=== PATIENT | male | born 1945 | race Caucasian/White ===

== ENCOUNTER 2022-09-29 07:14 | Day surgery (SDC) | payer OTHER, BC ==
[2022-09-23 14:13] VITALS: BMI 30.5
[2022-09-29] MEDS ORDERED: CIPROFLOXACIN 0.3% EYE DROPS 5 ML BOTTLE ONE (07:20)
[2022-09-29] MEDS ORDERED: TROPICAMIDE 1% OPHTH SOLN 15 ML BOTTLE ONE (07:20)
[2022-09-29] MEDS ORDERED: PHENYLEPHRINE 2.5% OPTHALMIC DROP 2ML BOTTLE ONE (07:20)
[2022-09-29] MEDS ORDERED: CYCLOPENTOLATE 2% OPHTH SOLN 2 ML BOTTLE ONE (07:20)
[2022-09-29] MEDS ORDERED: NEO/POLYMYX B SULF/DEXAMETH OPHTHALMIC 5ML BOTTLE ONE (07:31)
[2022-09-29] MEDS ORDERED: LIDOCAINE 1% P/F 10 MG/ML VIAL ONE (07:31)
[2022-09-29] MEDS ORDERED: CARBACHOL 0.01% INTRA-OCULAR 1.5 ML VIAL ONE (07:31)
[2022-09-29] MEDS ORDERED: BSS (NA/CA/MG/K) BALANCED SALT SOLUTION OPHTH SOLN 15 ML BOTTLE ONE (07:31)
[2022-09-29] MEDS ORDERED: TETRACAINE 0.5% OPHTH SOLN 2 ML BOTTLE ONE (07:31)
[2022-09-29] MEDS ORDERED: CYCLOPENTOLATE 2% OPHTH SOLN 2 ML BOTTLE OD ONE ×3 (07:45→07:55)
[2022-09-29] MEDS ORDERED: CIPROFLOXACIN 0.3% EYE DROPS 5 ML BOTTLE OD ONE ×3 (07:45→07:55)
[2022-09-29] MEDS ORDERED: PHENYLEPHRINE 2.5% OPHTH SOLN 15 ML BOTTLE OD ONE ×3 (07:45→07:55)
[2022-09-29] MEDS ORDERED: TROPICAMIDE 1% OPHTH SOLN 15 ML BOTTLE OD ONE ×3 (07:45→07:55)
[2022-09-29 07:46] VITALS: RESP 16
[2022-09-29] MEDS ORDERED: MIDAZOLAM HCL 2 MG/2 ML SINGLE DOSE VIAL ONE ×2 (08:27→09:06)
[2022-09-29 09:36] VITALS: BP 124/67; PULSE 78; TEMP 97.1
== END 2022-09-29 10:02 | disposition home or self-care (01) ==
LOC: FASU 07:14
PROVIDERS: ATTEND Ophthalmology
PROC: 08RJ3JZ Replacement of Right Lens with Synthetic Substitute, Percutaneous Approach (ICD-10-PCS; principal; 2022-09-29 09:03)
DX: H26.8 Other specified cataract (principal)
CPT/HCPCS: 66984; V2632

== ENCOUNTER 2022-11-16 08:52 | Day surgery (SDC) | payer OTHER, BC ==
[2022-11-08 10:29] VITALS: BMI 30.5
[2022-11-16] MEDS ORDERED: LIDOCAINE 1% P/F 10 MG/ML VIAL ONE (09:13)
[2022-11-16] MEDS ORDERED: CARBACHOL 0.01% INTRA-OCULAR 1.5 ML VIAL ONE (09:14)
[2022-11-16] MEDS ORDERED: TETRACAINE 0.5% OPHTH SOLN 2 ML BOTTLE ONE (09:14)
[2022-11-16] MEDS ORDERED: BSS (NA/CA/MG/K) BALANCED SALT SOLUTION OPHTH SOLN 15 ML BOTTLE ONE (09:14)
[2022-11-16] MEDS ORDERED: NEO/POLYMYX B SULF/DEXAMETH OPHTHALMIC 5ML BOTTLE ONE (09:14)
[2022-11-16] MEDS: PHENYLEPHRINE 2.5% OPTHALMIC DROP 2ML BOTTLE ONE ×3 (09:30→09:40)
[2022-11-16] MEDS: CYCLOPENTOLATE 2% OPHTH SOLN 2 ML BOTTLE ONE ×3 (09:30→09:40)
[2022-11-16] MEDS: CIPROFLOXACIN 0.3% EYE DROPS 5 ML BOTTLE ONE ×3 (09:30→09:40)
[2022-11-16] MEDS: TROPICAMIDE 1% OPHTH SOLN 15 ML BOTTLE ONE ×3 (09:30→09:40)
[2022-11-16] MEDS ORDERED: MIDAZOLAM HCL 2 MG/2 ML SINGLE DOSE VIAL ONE (10:34)
[2022-11-16 11:29] VITALS: RESP 16; TEMP 98.4
[2022-11-16 12:22] VITALS: BP 127/72; PULSE 82
== END 2022-11-16 12:05 | disposition home or self-care (01) ==
LOC: FASU 08:52
PROVIDERS: ATTEND Ophthalmology
PROC: 08RK3JZ Replacement of Left Lens with Synthetic Substitute, Percutaneous Approach (ICD-10-PCS; principal; 2022-11-16 11:04)
DX: H26.8 Other specified cataract (principal)
CPT/HCPCS: 66984; V2632